=== PATIENT | female | born 1940 | race Caucasian/White ===

== ENCOUNTER → 2023-11-26 16:55 | Outpatient (REF) | payer OTHER, SELFPAY | LOC: PAVMRI 16:55 | PROVIDERS: ATTENDING PHYSICIAN Specialist; FAMILY PHYSICIAN Family Medicine | DX: M79.605 Pain in left leg (principal); M51.36 Other intervertebral disc degeneration, lumbar region | CPT/HCPCS: 72148; 73718 ==

== ENCOUNTER → 2024-02-05 11:51 | Outpatient (REF) | payer OTHER, SELFPAY | LOC: HWWDC 11:51 | PROVIDERS: ATTENDING PHYSICIAN Family Medicine | DX: Z12.31 Encounter for screening mammogram for malignant neoplasm of breast (principal) | CPT/HCPCS: 77063; 77067 ==

== ENCOUNTER → 2025-02-06 12:55 | Outpatient (REF) | payer OTHER, SELFPAY | LOC: HWWDC 12:55 | PROVIDERS: ATTENDING PHYSICIAN Family Medicine | DX: Z12.31 Encounter for screening mammogram for malignant neoplasm of breast (principal) | CPT/HCPCS: 77063; 77067 ==